=== PATIENT | female | born 1990 | race Caucasian/White ===

== ENCOUNTER → 2020-01-28 | Outpatient (CLI) | payer OTHER | END | disposition home or self-care (01) | LOC: PLD 15:50 → LAB SHORT 15:50 | DX: Z34.03 Encounter for supervision of normal first pregnancy, third trimester (principal) | CPT/HCPCS: 87081; 87653 ==

== ENCOUNTER 2020-03-10 02:49 | Inpatient (IN) | payer OTHER ==
[~2020-03-10] VITALS: Ht 165.1 cm; Wt 73.4 kg
[2020-03-10 03:56] LABS: BASOPHILS ABSOLUTE AUTO 0.08 K/mm3 (0.00-0.23); BASOPHILS PERCENT AUTO 1 % (0-2); EOSINOPHILS ABSOLUTE AUTO 0.06 K/mm3 (0.00-0.68); EOSINOPHILS PERCENT AUTO 0 % (0-6); Hemoglobin 13.6 g/dL (11.5-16.0); IMMATURE GRAN ABSOLUTE AUTO 0.29 K/mm3 (0.00-0.10); IMMATURE GRAN PERCENT AUTO 2 % (0-1); LYMPHOCYTES ABSOLUTE AUTO 1.75 K/mm3 (0.84-5.20); LYMPHOCYTES PERCENT AUTO 13 % (21-46); MONOCYTES ABSOLUTE AUTO 0.99 K/mm3 (0.16-1.47); MONOCYTES PERCENT AUTO 7 % (4-13); Mean Corpuscular HGB 32.5 pg (26.0-34.0); Mean Corpuscular Volume 96 fL (80-100); Mean Platelet Volume 10.9 fL (9.1-12.4); NEUTROPHILS ABSOLUTE AUTO 10.75 K/mm3 (1.96-9.15); NEUTROPHILS PERCENT AUTO 77 % (41-73); Platelet Count 222 K/mm3 (150-400); RDW Coefficient Variation 13.2 % (11.7-14.2); RDW Standard Deviation 46.7 fL (35.1-46.3); Red Blood Cell Count 4.19 M/mm3 (3.80-5.20); White Blood Cell Count 13.92 K/mm3 (4.00-11.30)
--- NOTE | 2020-03-10 07:20 | NUR ---
PT HERE AT 41 6/7 WEEKS, IN [facility], PLANNING INDUCTION TONIGHT. FIRST BABY FOR BOTH PARENTS, LOTS OF APPROPRIATE QUESTIONS. RN DID TEACHING. PLANS NATURAL . PT'S TRENT IN ROOM, VERY LOVING AND SUPPORTIVE TO JOSHUA. SHE IS COPING WELL.
--- NOTE | 2020-03-10 15:41 | NUR ---
RN ROUNDED TO HELP W/ . PT HAS DIMPLED NIPPLES. NB ABLE TO LATCH ON EASILY. INSTRUCT/DEMO WIDENING LATCH, CORRECT POSITIONING AND NIPPLE SHAPE AFTER FEEDS. INSTRUCTED PT TO HOLD NIPPLE ERECT AT FEEDING TO AIR DRY TO KEEP NIPPLE FROM RETRACTING WHILE WET AND TISSUE DRYING TO IT'S SELF. PT VERBALIZED UNDERSTANDING, DENIES ANY FURTHER QUESTIONS OR CONCERNS.
[2020-03-11 07:46] LABS: Hematocrit 38.1 % (33.0-51.0); Hemoglobin 12.7 g/dL (11.5-16.0); Mean Corpuscular HGB 32.1 pg (26.0-34.0); Mean Corpuscular HGB Conc 33.3 g/dL (31.5-36.5); Mean Corpuscular Volume 96 fL (80-100); Mean Platelet Volume 10.4 fL (9.1-12.4); Platelet Count 202 K/mm3 (150-400); RDW Coefficient Variation 13.3 % (11.7-14.2); RDW Standard Deviation 47.3 fL (35.1-46.3); Red Blood Cell Count 3.96 M/mm3 (3.80-5.20); White Blood Cell Count 16.82 K/mm3 (4.00-11.30)
[2020-03-11] MEDS ORDERED: DOCU100 PO (07:58)
[2020-03-11] MEDS ORDERED: IBUP800 PO (07:58)
--- NOTE | 2020-03-11 09:44 | NUR ---
RN ROUNDED TO HELP W/ . PT USING SHIELD, NIPPLES ARE DIMPLED. INSTRUCT/DEMO SHIELD USE. NB NOT FULLY INTERESTED IN FEEDING AT THIS TIME. NB WOULD LATCH THEN QUICKLY CAME OFF. PT IS HOLDING/POSITIONING NB VERY WELL. FURTHER SUPPORT OFFERED. PT AND SO LOVING W/ NB, DENIES ANY FURTHER QUESTIONS OR CONCERNS.
--- NOTE | 2020-03-11 13:55 | NUR ---
Pt given written and verbal discharge instructions. Pt verbalizes understanding and questions answered. Pt will follow up within 5-[address] Jones or sooner if needed. She will also follow up here at [facility] for PPFU once jaundice comes back from baby.
--- NOTE | 2020-03-11 14:06 | NUR ---
Pt. Declined MMR Vaccine at this time.
== END 2020-03-11 15:30 | disposition home or self-care (01) | DRG 807 ==
LOC: OBS 02:49 → BC 02:50 → OBS 03:03 → BC 03:06
PROVIDERS: ADMIT Obstetrics & Gynecology
PROC: 10E0XZZ Delivery of Products of Conception, External Approach (ICD-10-PCS; principal; 2020-03-10)
PROC: 0KQM0ZZ Repair Perineum Muscle, Open Approach (ICD-10-PCS; 2020-03-10)
PROC: 10907ZC Drainage of Amniotic Fluid, Therapeutic from Products of Conception, Via Natural or Artificial Opening (ICD-10-PCS; 2020-03-10)
DX: O48.0 Post-term pregnancy (principal); Z37.0 Single live birth; O70.1 Second degree perineal laceration during delivery; Z3A.41 41 weeks gestation of pregnancy
CPT/HCPCS: 36415; 85025; 85027; 86850; 86900; 86901; J2210; J2590; J7120

== ENCOUNTER → 2021-04-10 | Outpatient (CLI) | payer OTHER ==
[~2021-04-10] MED LIST: DOCU100 PO; IBUP800 PO
[2021-04-14 14:08] LABS: HPV 16 Negative (Negative); HPV 18 Negative (Negative); HPV OTHER HR TYPES Negative (Negative)
== END ==
LOC: LAB SHORT 18:35 → LAB 18:35
PROVIDERS: Obstetrics & Gynecology
DX: Z01.419 Encounter for gynecological examination (general) (routine) without abnormal findings (principal)
CPT/HCPCS: 87624; G0123

== ENCOUNTER → 2021-09-21 | Outpatient (CLI) | payer OTHER | END | disposition home or self-care (01) | LOC: LAB 16:18 → LAB SHORT 16:18 | DX: O09.93 Supervision of high risk pregnancy, unspecified, third trimester (principal) | CPT/HCPCS: 87081; 87150 ==

== ENCOUNTER 2021-10-17 23:13 | Inpatient (IN) | payer OTHER ==
[~2021-10-17] VITALS: Ht 165.1 cm; Wt 75.4 kg
[2021-10-17] MEDS ORDERED: PRENATAL TABLE1 EAC2 PO (23:45)
[2021-10-17 23:57] LABS: BASOPHILS ABSOLUTE AUTO 0.04 K/mm3 (0.00-0.23); BASOPHILS PERCENT AUTO 0 % (0-2); EOSINOPHILS ABSOLUTE AUTO 0.03 K/mm3 (0.00-0.68); EOSINOPHILS PERCENT AUTO 0 % (0-6); Hematocrit 38.5 % (33.0-51.0); Hemoglobin 13.1 g/dL (11.5-16.0); IMMATURE GRAN ABSOLUTE AUTO 0.13 K/mm3 (0.00-0.10); IMMATURE GRAN PERCENT AUTO 1 % (0-1); LYMPHOCYTES ABSOLUTE AUTO 1.66 K/mm3 (0.84-5.20); LYMPHOCYTES PERCENT AUTO 14 % (21-46); MONOCYTES ABSOLUTE AUTO 0.85 K/mm3 (0.16-1.47); MONOCYTES PERCENT AUTO 7 % (4-13); Mean Corpuscular HGB 31.6 pg (26.0-34.0); Mean Corpuscular Volume 93 fL (80-100); Mean Platelet Volume 9.6 fL (9.1-12.4); NEUTROPHILS ABSOLUTE AUTO 9.58 K/mm3 (1.96-9.15); NEUTROPHILS PERCENT AUTO 78 % (41-73); Platelet Count 241 K/mm3 (150-400); RDW Coefficient Variation 13.4 % (11.7-14.2); RDW Standard Deviation 45.7 fL (35.1-46.3); Red Blood Cell Count 4.14 M/mm3 (3.80-5.20); White Blood Cell Count 12.29 K/mm3 (4.00-11.30)
[2021-10-18 00:33] LABS: Influenza A, PCR NEGATIVE (NEGATIVE); Influenza B, PCR NEGATIVE (NEGATIVE); Resp Syncytial Virus, PCR NEGATIVE (NEGATIVE); SARS-Cov-2 (COVID-19) PCR, MMC NEGATIVE (NEGATIVE)
--- NOTE | 2021-10-18 05:00 | NUR ---
ASSUMED CARE OF PT. SHE IS SLEEPING AT THIS TIME.
--- NOTE | 2021-10-18 06:00 | NUR ---
ROUNDED, PT IS SLEEPING SOUNDLY IN BED WITH FOB HOLDING BABY IN THE ROCKING CHAIR.
== END 2021-10-19 09:55 | disposition home or self-care (01) | DRG 807 ==
LOC: OBS 23:13 → BC 23:13 → OBS 23:34 → BC 23:36
PROVIDERS: ADMIT Advanced Practice Midwife
PROC: 10E0XZZ Delivery of Products of Conception, External Approach (ICD-10-PCS; principal; 2021-10-18)
PROC: 0KQM0ZZ Repair Perineum Muscle, Open Approach (ICD-10-PCS; 2021-10-18)
PROC: 10907ZC Drainage of Amniotic Fluid, Therapeutic from Products of Conception, Via Natural or Artificial Opening (ICD-10-PCS; 2021-10-18)
DX: O34.13 Maternal care for benign tumor of corpus uteri, third trimester (principal); Z37.0 Single live birth; Z3A.39 39 weeks gestation of pregnancy; D25.9 Leiomyoma of uterus, unspecified; Z20.822 Contact with and (suspected) exposure to COVID-19; O70.1 Second degree perineal laceration during delivery; Z98.890 Other specified postprocedural states; Z28.21 Immunization not carried out because of patient refusal; Z79.899 Other long term (current) drug therapy
CPT/HCPCS: 0241U; 36415; 59025; 85025; 86850; 86900; 86901; A9270; J2590; J7120

== ENCOUNTER → 2024-04-09 | Outpatient (CLI) | payer OTHER ==
[~2024-04-09] MED LIST changes: +PRENATAL TABLE1 EAC2 PO
== END ==
LOC: LAB SHORT 11:12 → LAB 11:12
DX: O09.90 Supervision of high risk pregnancy, unspecified, unspecified trimester (principal)
CPT/HCPCS: 87081; 87150

== ENCOUNTER 2024-05-05 17:55 | Inpatient (IN) | payer OTHER ==
[~2024-05-05] VITALS: Ht 165.1 cm; Wt 79.5 kg
[2024-05-05 18:09] VITALS: BP 132/83
[2024-05-05] MEDS ORDERED: Misoprostol 200 MCG Tab PR PRN (19:00)
[2024-05-05] MEDS ORDERED: Methylergonovine Maleate 0.2MG / ML 1ML Amp IM PRN (19:00)
[2024-05-05] MEDS ORDERED: OXYTOCIN/RINGER'S LACTATE 500 ML IV PRN (19:00)
[2024-05-05] MEDS ORDERED: Lactated Ringer's 1,000 ML IV PRN (19:00)
[2024-05-05] MEDS ORDERED: Misoprostol 200 MCG Tab BC PRN (19:00)
[2024-05-05] MEDS ORDERED: Oxytocin 10 Unit / ML Vial IM PRN (19:00)
[2024-05-05] MEDS ORDERED: Ondansetron HCl 2 MG / ML 2ML Vial IV PRN (19:00)
[2024-05-05] MEDS ORDERED: Carboprost Tromethamine 250 MCG/ML 1ML Amp IM PRN (19:00)
[2024-05-05] MEDS ORDERED: Acetaminophen 500 MG Tab PO PRN (19:00)
[2024-05-05] MEDS ORDERED: Calcium Carbonate 500 MG Tab Chew PO SCH (19:05)
[2024-05-05] MEDS ORDERED: Tranexamic Acid 100 ML IV SCH (19:10)
[2024-05-05 19:41] VITALS: BP 124/72
[2024-05-05 20:22] LABS: BASOPHILS ABSOLUTE AUTO 0.06 K/mm3 (0.00-0.23); BASOPHILS PERCENT AUTO 1 % (0-2); EOSINOPHILS ABSOLUTE AUTO 0.02 K/mm3 (0.00-0.68); EOSINOPHILS PERCENT AUTO 0 % (0-6); Hematocrit 37.5 % (33.0-51.0); Hemoglobin 12.6 g/dL (11.5-16.0); IMMATURE GRAN ABSOLUTE AUTO 0.23 K/mm3 (0.00-0.10); IMMATURE GRAN PERCENT AUTO 2 % (0-1); LYMPHOCYTES ABSOLUTE AUTO 1.62 K/mm3 (0.84-5.20); LYMPHOCYTES PERCENT AUTO 14 % (21-46); MONOCYTES ABSOLUTE AUTO 0.81 K/mm3 (0.16-1.47); MONOCYTES PERCENT AUTO 7 % (4-13); Mean Corpuscular HGB Conc 33.6 g/dL (31.5-36.5); Mean Corpuscular Volume 92 fL (80-100); Mean Platelet Volume 9.6 fL (9.1-12.4); NEUTROPHILS PERCENT AUTO 76 % (41-73); Platelet Count 245 K/mm3 (150-400); RDW Coefficient Variation 14.4 % (11.7-14.2); RDW Standard Deviation 48.1 fL (35.1-46.3); Red Blood Cell Count 4.06 M/mm3 (3.80-5.20); White Blood Cell Count 11.44 K/mm3 (4.00-11.30)
[2024-05-05 23:34] VITALS: BP 136/81
[2024-05-06] VITALS (19 sets, daily range): BP systolic 101–171; BP diastolic 57–105
[2024-05-06] MEDS ORDERED: Methylergonovine Maleate 0.2MG / ML 1ML Amp IM PRN (03:10)
[2024-05-06] MEDS ORDERED: FLU VACC TS2024-25(6MOS UP)/PF 45 MCG/0.5 ML SYRINGE IM ONE ×2 (03:15→03:20)
[2024-05-06] MEDS ORDERED: Lactated Ringer's 1,000 ML IV SCH ×2 (03:15)
[2024-05-06] MEDS ORDERED: Lanolin Cream TOP PRN (03:15)
[2024-05-06] MEDS ORDERED: Witch Hazel/Glycerin PADS TOP PRN ×2 (03:15→03:20)
[2024-05-06] MEDS ORDERED: Ketorolac Tromethamine 30mg Vial IV PRN (03:15)
[2024-05-06] MEDS ORDERED: Measles/Mumps/Rubella Vaccine 0.5 ML Vial SC ONE (03:15)
[2024-05-06] MEDS ORDERED: OXYTOCIN/RINGER'S LACTATE 500 ML IV SCH (03:20)
[2024-05-06] MEDS ORDERED: Misoprostol 200 MCG Tab PR PRN (03:20)
[2024-05-06] MEDS ORDERED: Ibuprofen 400 MG Tab PO PRN (03:20)
[2024-05-06] MEDS ORDERED: Oxytocin 10 Unit / ML Vial IM ONE (03:20)
[2024-05-06] MEDS ORDERED: Acetaminophen 325 MG TABLET PO PRN (03:25)
[2024-05-06] MEDS ORDERED: Docusate Sodium 100 MG Cap PO PRN (03:25)
[2024-05-06] MEDS ORDERED: Benzocaine Topical Anesthetic Spray 60GM TOP PRN ×2 (03:25)
[2024-05-06 07:03] LABS: Hematocrit 35.4 % (33.0-51.0); Hemoglobin 12.2 g/dL (11.5-16.0); Mean Corpuscular HGB 31.4 pg (26.0-34.0); Mean Corpuscular HGB Conc 34.5 g/dL (31.5-36.5); Mean Corpuscular Volume 91 fL (80-100); Mean Platelet Volume 10.1 fL (9.1-12.4); Platelet Count 245 K/mm3 (150-400); RDW Coefficient Variation 14.3 % (11.7-14.2); RDW Standard Deviation 47.4 fL (35.1-46.3); Red Blood Cell Count 3.89 M/mm3 (3.80-5.20); White Blood Cell Count 13.93 K/mm3 (4.00-11.30)
[2024-05-06] MEDS ORDERED: Prenatal Vit/FE Fumarate/FA 1 Tab PO SCH ×2 (09:00)
--- NOTE | 2024-05-06 18:55 | NUR ---
REPT TO PM SHIFT
[2024-05-07 00:52] VITALS: BP 111/66
[2024-05-07 04:57] VITALS: BP 111/70
[2024-05-07 07:33] VITALS: BP 126/71
--- NOTE | 2024-05-07 07:47 | NUR ---
DR. LANTIGUA HERE. D/C INSTRUCTIONS DISCUSSED. PLAN D/C HOME THIS MORNING. PT IS AN EXPERIENCED MOM, NO QUESTIONS OR CONCERNS. ANDRES SELF AND NB CARE WELL.
--- NOTE | 2024-05-07 09:18 | NUR ---
D/C INSTRUCTIONS DISCUSSED AND SIGNED.
== END 2024-05-07 09:50 | disposition home or self-care (01) | DRG 807 ==
LOC: OBS 17:55 → BC 17:58 → OBS 18:50 → BC 18:51
PROVIDERS: ADMIT Advanced Practice Midwife
PROC: 10E0XZZ Delivery of Products of Conception, External Approach (ICD-10-PCS; principal; 2024-05-05)
PROC: 0KQM0ZZ Repair Perineum Muscle, Open Approach (ICD-10-PCS; 2024-05-05)
DX: O70.1 Second degree perineal laceration during delivery (principal); Z37.0 Single live birth; Z3A.39 39 weeks gestation of pregnancy
CPT/HCPCS: 36415; 85025; 85027; 86850; 86900; 86901; A9270

== ENCOUNTER → 2024-06-28 | Outpatient (CLI) | payer OTHER ==
[2024-07-05 09:04] LABS: HPV HIGH RISK BY TMA Not Detected; HPV SOURCE Cervical
== END ==
LOC: LAB SHORT 12:55 → LAB 12:55
PROVIDERS: Advanced Practice Midwife
DX: Z01.419 Encounter for gynecological examination (general) (routine) without abnormal findings (principal)
CPT/HCPCS: 87624; G0123

== ENCOUNTER 2024-07-11 23:20 | Observation (INO) | payer OTHER ==
[~2024-07-11] VITALS: Ht 165.1 cm; Wt 68.0 kg
[2024-07-12] VITALS (15 sets, daily range): BP systolic 104–136; BP diastolic 66–93
[2024-07-12 00:01] LABS: BASOPHILS ABSOLUTE AUTO 0.06 K/mm3 (0.00-0.23); BASOPHILS PERCENT AUTO 1 % (0-2); EOSINOPHILS PERCENT AUTO 1 % (0-6); Hematocrit 42.7 % (33.0-51.0); Hemoglobin 14.1 g/dL (11.5-16.0); IMMATURE GRAN ABSOLUTE AUTO 0.05 K/mm3 (0.00-0.10); IMMATURE GRAN PERCENT AUTO 0 % (0-1); LYMPHOCYTES ABSOLUTE AUTO 2.62 K/mm3 (0.84-5.20); LYMPHOCYTES PERCENT AUTO 21 % (21-46); MONOCYTES PERCENT AUTO 5 % (4-13); Mean Corpuscular HGB 30.1 pg (26.0-34.0); Mean Corpuscular Volume 91 fL (80-100); Mean Platelet Volume 8.8 fL (9.1-12.4); NEUTROPHILS ABSOLUTE AUTO 9.16 K/mm3 (1.96-9.15); NEUTROPHILS PERCENT AUTO 73 % (41-73); Platelet Count 317 K/mm3 (150-400); RDW Coefficient Variation 13.2 % (11.7-14.2); RDW Standard Deviation 44.6 fL (35.1-46.3); Red Blood Cell Count 4.68 M/mm3 (3.80-5.20); White Blood Cell Count 12.59 K/mm3 (4.00-11.30)
[2024-07-12 00:25] LABS: Beta HCG, Quantitative, Serum <1 mIU/mL (0-3)
[2024-07-12 00:35] LABS: Source, Urine Clean Catch
[2024-07-12 00:38] LABS: Bilirubin, Urine Neg (Neg); Blood, Urine Neg (Neg); Glucose Qualitative, Urine Neg (Neg); Ketones, Urine 3+ (Neg); Leukocyte Esterase, Urine 1+ (Neg); Nitrite, Urine Neg (Neg); Protein, Urine Neg (Neg); Urobilinogen, Urine NORM (Normal)
[2024-07-12 00:44] LABS: Appearance, Urine Clear (Clear); Color, Urine Yellow (P-Yellow)
[2024-07-12 00:45] LABS: Bacteria Mod /hpf; Red Blood Cells, Urine 0-2 /hpf (0-2); Squamous Epithelial Cells Many /hpf (Few)
[2024-07-12 00:49] LABS: Alanine Aminotransfer (ALT/SGP 42 U/L (12-78); Albumin, Blood 4.2 g/dL (3.4-5.0); Albumin/Globulin Ratio 1.4 (0.8-1.8); Alk Phos 75 U/L (50-136); Anion Gap 14 mmol/L (3-11); Aspartate Aminotrans (AST/SGOT 23 U/L (12-37); Bilirubin, Total 0.4 mg/dL (0.1-1.0); Blood Urea Nitrogen 24 mg/dL (8-24); Bun/Creatinine Ratio 30.2 (12.0-20.0); CO2, Blood 25 mmol/L (21-32); Calcium, Blood 8.7 mg/dL (8.5-10.1); Chloride, Blood 107 mmol/L (98-108); Glomerular Filtration Rate 98 (60-); Glucose, Blood 97 mg/dL (70-99); Potassium, Blood 3.5 mmol/L (3.5-5.5); Sodium, Blood 142 mmol/L (136-145); Total Protein, Blood 7.2 g/dL (6.4-8.2)
[2024-07-12] MEDS ORDERED: NS 1,000 ML IV SCH (01:45)
[2024-07-12] MEDS ORDERED: CefTRIAXone Sodium 1,000 MG in NS 50 ML IV ONE (02:35)
[2024-07-12] MEDS ORDERED: MetroNIDAZOLE 500MG/NS 100 ml 100 ML IV ONE (02:40)
[2024-07-12] MEDS ORDERED: Ondansetron HCl 2 MG / ML 2ML Vial IV PRN ×2 (02:40→10:45)
[2024-07-12] MEDS ORDERED: Morphine Sulfate 4 MG/1 ML Injection IV PRN (02:45)
--- NOTE | 2024-07-12 06:46 | NUR ---
SHIFT SUMMARY PT ARRIVED AT 0240 WITH APPENDICITIS. PT IS 2 MONTHS AND CURRENTLY . ER DOCTOR TOLD PT SHE WOULD NEED TO PUMP AND DUMP HER BREASTMILK. PT MEDICATIONS AND DX DO NOT INDICATE A NEED FOR DUMPING PUMPED BREASTMILK. WILL ATTEMPT TO CONSULT WITH JUNIOR PROJECT COORDINATOR TO BETTER EXPLAIN TO PT WHAT NEEDS TO BE DUMPED, AND WHAT CAN BE SALVAGED.
--- NOTE | 2024-07-12 10:32 | NUR ---
Pt. is awake in bed and welcomes my visit. Spouse Tomas is at bedside. Family is known to this merchant mariner from the community. Facilitate a life review focusing on the onset of her current condition. Pt. verbalizes that she is a young mmother, and becomes appropriately emotional when she speaks of her children. Provide empathetic listening and a calming presence. Pt. displayed evidence of being engaged and responsive to pastoral care. Prayed with Pt. and spouse. Both verbalized gratitude for the spiritual care visit and welcomed this merchant mariner to return.
[2024-07-12] MEDS ORDERED: Lactated Ringer's 1,000 ML IV SCH ×2 (10:35→10:45)
[2024-07-12] MEDS ORDERED: Acetaminophen 500 MG Tab PO PRN (10:45)
[2024-07-12] MEDS ORDERED: FLU VACC TS2024-25(6MOS UP)/PF 45 MCG/0.5 ML SYRINGE IM SCH (10:45)
[2024-07-12] MEDS ORDERED: HYDROmorphone HCl/Pf 1MG SYR IV PRN ×2 (10:45→12:10)
[2024-07-12] MEDS ORDERED: OxyCODONE HCL 5 MG TAB PO PRN (10:50)
--- NOTE | 2024-07-12 10:50 | NUR ---
PT TO SURGERY FOR APPENDECTOMY VIA WHEELCHAIR. AT BEDSIDE AND FOLLOWED THE PT TO PRE-OP.
[2024-07-12] MEDS ORDERED: Ketorolac Tromethamine 15mg Vial IV PRN (10:55)
[2024-07-12] MEDS ORDERED: Ampicillin Sod/Sulbactam Sod 3 GM in NS 100 ML IV SCH (11:00)
[2024-07-12] MEDS ORDERED: Bupivacaine 0.5% HCl 5 MG/ML 30MLVIAL ONE (11:26)
[2024-07-12] MEDS ORDERED: Dexamethasone Sod Phos 10 MG/ML 1ML VIAL ONE (11:30)
[2024-07-12] MEDS ORDERED: Rocuronium Bromide 10 MG/ML 5ML Injection IV ONE (11:30)
[2024-07-12] MEDS ORDERED: FentaNYL Citrate 50 MCG/ML 2 ML Injection ONE (11:30)
[2024-07-12] MEDS ORDERED: propofoL 20 ML IV ONE (11:30)
[2024-07-12] MEDS ORDERED: Ondansetron HCl 2 MG / ML 2ML Vial ONE (11:30)
[2024-07-12] MEDS ORDERED: Ketorolac Tromethamine 30mg Vial ONE (11:31)
--- NOTE | 2024-07-12 11:41 | NUR ---
History, Chart, Medications and Allergies reviewed before start of procedure. Patient up to Ambulate independently. Gait steady. Pre-Op teaching done. Pt verbalizes understanding. Patient confirms NPO status and agrees with scheduled surgery. Surgical site prepped with 2% Chlorhexidine cloth wipe.
[2024-07-12] MEDS ORDERED: FentaNYL Citrate 50 MCG/ML 2 ML Injection IV PRN (12:10)
[2024-07-12] MEDS ORDERED: Haloperidol Lactate Inj. 5 MG/ML Injection IV PRN (12:10)
[2024-07-12] MEDS ORDERED: Albuterol 2.5 MG/3 ML VIAL INH PRN (12:15)
[2024-07-12] MEDS ORDERED: Sugammadex Sodium 200 MG/2ML SDV (100 MG/ML) ONE (12:20)
[2024-07-12] MEDS ORDERED: OXYC5 PO (13:23)
--- NOTE | 2024-07-12 13:42 | NUR ---
PACU TO 208 PATIENT BROUGHT OUT TO ROOM 208 FROM PACU VIA GURNEY, ABLE TO STAND AND TRANSFER HERSELF TO THE BED WITH NO CONCERNS, DENIES PAIN AT THIS TIME BUT REPORTS MINOR HEADACH. 3 ABD LAPS WITH DERMABOND IN PLACE C/D/I. DISCUSSED PLAN OF CAR FOR TODAY WITH POTENTIAL DISCHARGE LATER TODAY IF ALL GOES WELL. WATER/CRACKERS/JELLO PROVIDED, POST OP VITALS STARTED.
--- NOTE | 2024-07-12 15:54 | NUR ---
DISCHARGE SUMMARY POD0 LAP APPY, A/OX4, VSS, TOLERATING PO, REPORTS MILD DISCOMFORT BUT DENIES NEED FOR PAIN MEDICATIONS AT THIS TIME, ABLE TO VOID IN THE BATHROOM, AMBULATE INDEPENDENTLY, REMOVED IV ACCESS JUST PRIOR TO DISCUSSING DC INSTRUCTIONS. DISCUSSED DC INSTRUCTIONS INCLUDING HOME CARE, MEDICATIONS, AND FOLLOW UP APPOINTMENT WITH GEN SURGERY. PROVIDED WRITTEN ECUCATION. ALL QEUSTIONS ANSWERED, PT LEFT AMBULATORY.
== END 2024-07-12 15:51 | disposition home or self-care (01) ==
LOC: ER 23:20 → SURS 23:21 → MEDS 23:21 → SURS 07-12 12:13
PROVIDERS: Student in an Organized Health Care Education/Training Program; ADMIT Surgery
PROC: 0DTJ0ZZ Resection of Appendix, Open Approach (ICD-10-PCS; principal; 2024-07-12 11:30)
DX: K35.80 Unspecified acute appendicitis (principal); E86.0 Dehydration
CPT/HCPCS: 36415; 72192; 80053; 81001; 83605; 84702; 85025; 87040; 87086; 88304; 96365; 96375; 99285-25; G0378; J0295; J0696; J1100; J1885; J2405; J2704; J3010; J7030; J7120